=== PATIENT | female | born 1955 | race Hispanic/Latino ===

== ENCOUNTER 2017-05-11 07:00 | Outpatient (CLI) | payer BC ==
[2017-05-11 07:53] LABS: Blood Urea Nitrogen 5 mg/dL (7-17)
[2017-05-11] MEDS ORDERED: NACL ONE (09:41)
--- NOTE | 2017-05-11 11:05 | Cat Scan Report ---
CT of the abdomen and pelvis with IV and oral contrast. History: Abdominal pain. Findings: The liver and spleen are normal in size and configuration with no focal abnormalities. The pancreas and gallbladder are unremarkable. The kidneys are normal in size and configuration with no evidence of solid mass or hydronephrosis. There is a tiny subcentimeter cyst in the lower pole left kidney.The adrenal glands are normal. There are several diverticula within the sigmoid region, but no radiographic evidence of diverticulitis. The uterus and adnexal regions are unremarkable. No free fluid is identified. Impression: 1. Subcentimeter left renal cyst. 2. Sigmoid diverticulosis with no evidence of diverticulitis.
== END 2017-05-11 07:01 | disposition home or self-care (01) ==
LOC: CT 07:00
PROVIDERS: ATTEND Internal Medicine Pulmonary Disease
DX: N28.1 Cyst of kidney, acquired (principal); K57.30 Diverticulosis of large intestine without perforation or abscess without bleeding
CPT/HCPCS: 36415; 74177; 82565; 84520; Q9967

== ENCOUNTER 2017-06-13 10:29 | Outpatient (CLI) | payer BC ==
--- NOTE | 2017-06-13 13:57 | Magnetic Resonance Report ---
MRI OF THE BRAIN WITHOUT CONTRAST: HISTORY: Headaches PROCEDURE: Multiplanar, multisequence MR imaging of the brain without IV contrast was performed. FINDINGS: The brain parenchyma signal intensity and its wilcox white interface are within normal limits on all sequences. No evidence for acute ischemia, hemorrhage or mass. No chronic infarct or extra-axial fluid collection. The midline structures are central. The basal cisterns are patent. Normal ventricular size. The orbital cavities and sella turcica demonstrate no abnormality. The visualized paranasal sinuses and mastoid air cells are well aerated. IMPRESSION: Unremarkable non-enhanced MRI of the brain.
== END 2017-06-13 10:30 | disposition home or self-care (01) ==
LOC: MRI 10:29
PROVIDERS: ATTEND Internal Medicine Pulmonary Disease
DX: R51 Headache (principal)
CPT/HCPCS: 70551